=== PATIENT | male | born 1965 | race Caucasian/White ===

== ENCOUNTER → 2021-11-06 14:23 | Outpatient (BNVA) | payer SELFPAY | PROVIDERS: PCP Internal Medicine; Visit Provider Physician Assistant | DX: Z02.79 Encounter for issue of other medical certificate (principal) ==

== ENCOUNTER 2022-07-02 11:40 | Outpatient (REF) | payer OTHER, SELFPAY ==
[2022-07-07 21:47] LABS: Lyme Abs Screen <0.90 index
== END 2022-07-02 11:41 | disposition home or self-care (01) ==
LOC: HO.MANLDS 11:40
PROVIDERS: Visit Provider Physician Assistant
DX: L08.9 Local infection of the skin and subcutaneous tissue, unspecified (principal)
CPT/HCPCS: 36415; 86617; 86618

== ENCOUNTER → 2022-11-06 13:38 | Outpatient (BNVA) | payer SELFPAY | PROVIDERS: PCP Internal Medicine; Visit Provider Physician Assistant | DX: Z02.79 Encounter for issue of other medical certificate (principal) ==